=== PATIENT | female | born 1935 | race Caucasian/White ===

== ENCOUNTER 2018-03-23 11:39 | Emergency (ER) | payer MEDICARE, BC ==
[2018-03-23] MEDS ORDERED: Aspirin 81 MG Tab.Chew PO ONE (11:55)
--- NOTE | 2018-03-23 12:01 | EDM.PDOC ---
ED HPI GENERAL MEDICAL PROBLEM - General Chief Complaint: Chest Pain Stated Complaint: CHEST PAIN Time Seen by Provider: 03/23/18 11:45 Source of Information: Reports: Patient History Limitations: Reports: No Limitations - History of Present Illness INITIAL COMMENTS - FREE TEXT/NARRATIVE: 82 yo female from [facility] presents with her for chest pain with radiation down both arms. Sx's began yesterday while doing yard work and not better in the evening. She slept all night and then this morning the sx's returned. She had some nausea, but no SOB or diaphoresis. Does not take any medication for HTN and states the last time she checked it it was about 140. Has no hx of CAD or AODM. Onset Date: 03/22/18 Duration: Hour(s):, Intermittent (went away last night, returned this morning. Had a less severe case of this once at home, apparently didn't have it assessed. ) Location: Reports: Chest Quality: Reports: Pressure Severity: Moderate Improves with: Reports: Rest (Does not resolve with rest today. ) Worsens with: Reports: Movement Context: Reports: Other (Was doing yard work yesterday at onset, has some risk factors for CAD.) Associated Symptoms: Reports: Nausea/Vomiting (no vomiting, nausea now gone.). Denies: Cough, Diaphoresis, Fever/Chills, Shortness of Breath Treatments BONE GRINDER: Reports: Other (see below) (none) - Related Data Allergies Allergy/AdvReac Type Severity Reaction Status Date / Time No Known Allergies Allergy Verified 03/23/18 11:48 Home Meds: Home Meds Bifidobacterium Infantis [Align] 4 mg PO BEDTIME 03/23/18 [History] Fluticasone Propionate [Flovent HFA] 2 puff INH DAILY 03/23/18 [History] Simvastatin [Zocor] 10 mg PO BEDTIME 03/23/18 [History] ED ROS GENERAL - Review of Systems Review Of Systems: See Below Constitutional: Reports: No Symptoms HEENT: Reports: No Symptoms Respiratory: Reports: No Symptoms Cardiovascular: Reports: No Symptoms GI/Abdominal: Reports: Nausea. Denies: Black Stool, Constipation, Diarrhea, Distension, Flatus, Hematemesis, Hematochezia, Melena, Vomiting : Reports: No Symptoms Musculoskeletal: Reports: No Symptoms Skin: Reports: No Symptoms Neurological: Reports: No Symptoms Psychiatric: Reports: No Symptoms ED EXAM, GENERAL - Physical Exam Exam: See Below Exam Limited By: No Limitations General Appearance: Alert, WD/WN, No Apparent Distress, Obese Eye Exam: Bilateral Eye: Normal Inspection Ears: Normal External Exam, Normal Canal, Hearing Grossly Normal, Normal TMs Ear Exam: Bilateral Ear: Auricle Normal, Canal Normal Nose: Normal Inspection, Normal Mucosa, No Blood Throat/Mouth: Normal Inspection, Normal Lips, Normal Oropharynx, Normal Voice, No Airway Compromise Head: Atraumatic, Normocephalic Neck: Normal Inspection, Supple, Non-Tender Respiratory/Chest: No Respiratory Distress, Lungs Clear, Normal Breath Sounds, No Accessory Muscle Use Cardiovascular: Regular Rate, Rhythm, No Edema GI/Abdominal: Normal Bowel Sounds, Soft, Non-Tender, No Distention Extremities: Normal Inspection, Normal Range of Motion, Non-Tender, No Pedal Edema Neurological: Alert, Oriented, CN II-XII Intact, Normal Cognition, No Motor/ Sensory Deficits Psychiatric: Normal Affect, Normal Mood Skin Exam: Warm, Dry, Intact, Normal Color, No Rash Lymphatic: No Adenopathy EKG INTERPRETATION EKG Date: 03/23/18 Time: 11:45 Rhythm: NSR Rate (Beats/Min): 72 Ewing: Normal P-Wave: Present QRS: Normal ST-T: Normal QT: Normal Comparison: NA - No Prior EKG EKG Interpretation Comments: flipped T's in V1-V2, Q waves inferior leads Course - Vital Signs Text/Narrative:: NTG #1-pain down significantly to a 3/10 from 6/10. NTG #2-pain down to 2/10 NTG #3-pain now 0/10 EKG#2 done after pain resolution-T waves now flattened in V2 instead of inverted. Dr. Rose accepts in transfer to [facility] @ 1300h. Last Recorded V/S: Last Vital Signs Temp 37.0 C 03/23/18 11:58 Pulse 73 03/23/18 12:43 Resp 12 03/23/18 12:43 BP 141/71 H 03/23/18 12:43 Pulse Ox 95 03/23/18 12:43 - Orders/Labs/Meds Orders: Active Orders 24 hr Category Date Time Status Cardiac Monitoring [RC] .As Directed Care 03/23/18 11:42 Active EKG Documentation Completion [RC] ASDIRECTED Care 03/23/18 11:42 Active EKG Documentation Completion [RC] ASDIRECTED Care 03/23/18 12:34 Ordered Sodium Chloride 0.9% [Saline Flush] Med 03/23/18 12:02 Active 10 ml FLUSH ASDIRECTED PRN Saline Lock Insert [OM.PC] Routine Oth 03/23/18 12:02 Ordered EKG 12 Lead [EK] Routine Ther 03/23/18 11:42 Ordered EKG 12 Lead [EK] Routine Ther 03/23/18 12:34 Ordered Medication Orders Sodium Chloride (Saline Flush) 10 ml FLUSH ASDIRECTED PRN PRN Reason: Keep Vein Open Last Admin: 03/23/18 12:16 Dose: 10 ml Labs: Laboratory Tests 03/23/18 03/23/18 Range/Units 11:57 11:57 WBC 11.7 H (4.5-11.0) K/uL RBC 4.95 (3.30-5.50) M/uL Hgb 14.8 (12.0-15.0) g/dL Hct 43.2 (36.0-48.0) % MCV 87 (80-98) fL MCH 30 (27-31) pg MCHC 34 (32-36) % Plt Count 382 (150-400) K/uL Sodium 141 (140-148) mmol/L Potassium 3.7 (3.6-5.2) mmol/L Chloride 105 (100-108) mmol/L Carbon Dioxide 29 (21-32) mmol/L Anion Gap 7.5 (5.0-14.0) mmol/L BUN 17 (7-18) mg/dL Creatinine 1.1 H (0.6-1.0) mg/dL Est Cr Clr Drug Dosing 31.72 mL/min Estimated GFR (MDRD) 48 L (>60) Glucose 265 H (74-106) mg/dL Calcium 10.5 H (8.5-10.1) mg/dL Troponin I 0.644 H* (0.000-0.056) ng/mL Meds: Medications Generic Name Dose Route Start Last Admin Trade Name Freq PRN Reason Stop Dose Admin Sodium Chloride 10 ml 03/23/18 12:02 03/23/18 12:16 Saline Flush FLUSH 10 ml ASDIRECTED PRN Administration Keep Vein Open Discontinued Medications Generic Name Dose Route Start Last Admin Trade Name Armandoq PRN Reason Stop Dose Admin Aspirin 243 mg 03/23/18 11:55 03/23/18 12:02 Aspirin PO 03/23/18 11:56 243 mg ONETIME ONE Administration Clopidogrel Bisulfate 600 mg 03/23/18 12:19 03/23/18 12:22 Plavix PO 03/23/18 12:20 600 mg ONETIME ONE Administration Metoprolol Tartrate 50 mg 03/23/18 12:06 03/23/18 12:14 Lopressor PO 03/23/18 12:07 50 mg ONETIME ONE Administration Nitroglycerin 0.4 mg 03/23/18 11:55 03/23/18 12:17 Nitrostat SL 0.4 mg Q5M PRN Administration Chest Pain Departure - Departure Time of Disposition: 13:15 Disposition: DC/Tfer to Acute Hospital 02 Reason for Transfer *Q: Other Condition: Serious Clinical Impression: Acute coronary syndrome HTN (hypertension) Qualifiers: Hypertension type: unspecified Qualified Code(s): I10 - Essential (primary) hypertension Hyperglycemia due to type 2 diabetes mellitus Qualifiers: Diabetes mellitus care home insulin use: without director long term care use Qualified Code(s ): E11.65 - Type 2 diabetes mellitus with hyperglycemia Referrals: PCP,None [Primary Care Provider] - Forms: ED Department Discharge - My Orders Last 24 Hours: My Active Orders 03/23/18 11:42 Cardiac Monitoring [RC] .As Directed EKG Documentation Completion [RC] ASDIRECTED EKG 12 Lead [EK] Routine 03/23/18 12:02 Sodium Chloride 0.9% [Saline Flush] 10 ml FLUSH ASDIRECTED PRN Saline Lock Insert [OM.PC] Routine 03/23/18 12:34 EKG Documentation Completion [RC] ASDIRECTED EKG 12 Lead [EK] Routine - Assessment/Plan Last 24 Hours: My Active Orders 03/23/18 11:42 Cardiac Monitoring [RC] .As Directed EKG Documentation Completion [RC] ASDIRECTED EKG 12 Lead [EK] Routine 03/23/18 12:02 Sodium Chloride 0.9% [Saline Flush] 10 ml FLUSH ASDIRECTED PRN Saline Lock Insert [OM.PC] Routine 03/23/18 12:34 EKG Documentation Completion [RC] ASDIRECTED EKG 12 Lead [EK] Routine
[2018-03-23] MEDS ORDERED: Sodium Chloride 0.9% 10 ML Syringe FLUSH PRN (12:02)
[2018-03-23] MEDS: Nitroglycerin 0.4 MG Tab.SL SL PRN ×3 (12:02→12:17)
[2018-03-23] MEDS ORDERED: Metoprolol Tartrate 50 MG Tab PO ONE (12:06)
[2018-03-23] MEDS ORDERED: Clopidogrel 75 MG Tab PO ONE (12:19)
[2018-03-23] MEDS ORDERED: Heparin Sodium 5,000 Units/ML Vial IVPUSH ONE (13:02)
[2018-03-23] MEDS ORDERED: Nitroglycerin/D5W 25 MG/250 ML BOTTLE IV SCH (13:15)
[2018-03-23] MEDS ORDERED: Heparin Sodium/D5W 25,000 UNITS/500 ML BAG IV SCH (13:15)
--- NOTE | 2018-03-25 10:04 | CR ---
Chest 1V Frontal INDICATION: Chest pain/HTN FINDINGS: Negative AP portable chest x-ray.
== END 2018-03-23 13:57 ==
LOC: JP.ED 11:39
DX: I24.9 Acute ischemic heart disease, unspecified (principal); E11.65 Type 2 diabetes mellitus with hyperglycemia; I10 Essential (primary) hypertension
CPT/HCPCS: 36415; 71045; 80048; 84484; 85027; 93005; 96374; 96376; 99285; A9270; J1644; J7050

== ENCOUNTER 2018-05-06 23:18 | Emergency (ER) | payer MEDICARE, BC ==
--- NOTE | 2018-05-07 01:30 | EDM.PDOC ---
ED HPI GENERAL MEDICAL PROBLEM - General Chief Complaint: General Stated Complaint: BACK PAIN/DIZZY Time Seen by Provider: 05/07/18 01:05 Source of Information: Reports: Patient, Family (Spouse and daughter), Old Records, RN Notes Reviewed History Limitations: Reports: No Limitations - History of Present Illness INITIAL COMMENTS - FREE TEXT/NARRATIVE: Brought in by her spouse and daughter Chief complaint Decreased energy, arm pains, her in particular was concerned that she may be having another heart attack History of present illness 82-year-old female was in hospital the with chest pain, elevated troponin and subtle changes on EKG, transferred to [place] where she underwent a stent placement. After that she improved. However in the last couple of days her energy is decreased, her appetite also She's been feeling off balance having some troubles walking, holding onto the nash or other people. No nausea vomiting No diarrhea No lightheadedness, not faint when she stands up. No chest pain no palpitations Some discomfort in her arms or achiness which is what worried her Has to stop skilled nursing up her dad stairways to get her breath No cold symptoms She has a chronic cough however Histor diabetes and hypertensiony of back Pain Score (Numeric/FACES): 4 - Related Data Allergies Allergy/AdvReac Type Severity Reaction Status Date / Time No Known Allergies Allergy Verified 05/07/18 00:29 Home Meds: Home Meds Bifidobacterium Infantis [Align] 4 mg PO BEDTIME 03/23/18 [History] Fluticasone Propionate [Flovent HFA] 2 puff INH DAILY 03/23/18 [History] Simvastatin [Zocor] 20 mg PO BEDTIME 03/23/18 [History] Albuterol [Ventolin HFA] 2 puff INH Q4H PRN 05/07/18 [History] Clopidogrel Bisulfate [Clopidogrel] 1 tab PO DAILY 05/07/18 [History] Famotidine 1 tab PO BEDTIME 05/07/18 [History] Lisinopril 1 tab PO DAILY 05/07/18 [History] Metoprolol Tartrate 12.5 mg PO BID 05/07/18 [History] Nitroglycerin 1 tab SL Q5M PRN 05/07/18 [History] Past Medical History HEENT History: Reports: Cataract, Impaired Vision Cardiovascular History: Reports: Angina, High Cholesterol, CA, Stents Respiratory History: Reports: Other (See Below) Other Respiratory History: on inhalers daily Genitourinary History: Reports: Renal Calculus DIRECTOR OF MEDICAL STAFF SERVICES History: Reports: Musculoskeletal History: Reports: Arthritis Hematologic History: Reports: Anticoagulation Therapy Oncologic (Cancer) History: Reports: Lung - Past Surgical History Cardiovascular Surgical History: Reports: Coronary Artery Stent Respiratory Surgical History: Reports: Lung Resection GI Surgical History: Reports: Cholecystectomy, Colonoscopy, EGD Female Surgical History: Reports: Hysterectomy Endocrine Surgical History: Reports: Parathyroidectomy Musculoskeletal Surgical History: Reports: Hip Replacement, Knee Replacement Oncologic Surgical History: Reports: Biopsy of Breast Social & Family History - Tobacco Use Smoking Status *Q: Never Smoker - Caffeine Use Caffeine Use: Reports: None - Recreational Drug Use Recreational Drug Use: No ED ROS GENERAL - Review of Systems Review Of Systems: See Below Constitutional: Reports: Malaise, Weakness. Denies: Fever, Chills, Night Sweats , Diaphoresis, Decreased Appetite HEENT: Reports: No Symptoms Respiratory: Reports: Shortness of Breath, Cough (Chronic) Cardiovascular: Reports: Dyspnea on Exertion. Denies: Chest Pain, Lightheadedness, Palpitations GI/Abdominal: Reports: Decreased Appetite. Denies: Abdominal Pain, Diarrhea, Nausea, Vomiting Musculoskeletal: Reports: Joint Pain, Muscle Pain Skin: Reports: No Symptoms Neurological: Reports: No Symptoms Psychiatric: Reports: No Symptoms Immunologic: Reports: No Symptoms ED EXAM, GENERAL - Physical Exam Exam: See Below Exam Limited By: No Limitations General Appearance: Alert, Mild Distress, Other (Tired, listless, Vital signs within normal except pulse so little low at 58) Ears: Normal External Exam, Hearing Grossly Normal Nose: Normal Inspection, Normal Mucosa Throat/Mouth: Normal Inspection, Normal Oropharynx, Normal Voice Head: Atraumatic, Normocephalic Neck: Normal Inspection Respiratory/Chest: No Respiratory Distress, No Accessory Muscle Use Cardiovascular: Regular Rate, Rhythm, Bradycardia GI/Abdominal: Normal Bowel Sounds, Soft, Non-Tender Back Exam: Normal Inspection Extremities: Normal Inspection, Normal Capillary Refill Neurological: Alert, Oriented, No Motor/Sensory Deficits Psychiatric: Flat Affect Skin Exam: Warm, Dry, Intact, No Rash, Pallor Course - Vital Signs Last Recorded V/S: Last Vital Signs Temp 35.2 C 05/07/18 00:40 Pulse 60 05/07/18 02:01 Resp 17 05/07/18 02:01 BP 109/55 L 05/07/18 02:01 Pulse Ox 95 05/07/18 02:01 - Orders/Labs/Meds Orders: Active Orders 24 hr Category Date Time Status EKG Documentation Completion [RC] ASDIRECTED Care 05/07/18 01:22 Active Chest 1V Frontal [CR] Stat Exams 05/07/18 01:22 Taken EKG 12 Lead [EK] Routine Ther 05/07/18 01:21 Ordered Labs: Laboratory Tests 05/07/18 05/07/18 Range/Units 01:21 01:21 WBC 8.5 (4.5-11.0) K/uL RBC 4.12 (3.30-5.50) M/uL Hgb 12.4 D (12.0-15.0) g/dL Hct 37.3 (36.0-48.0) % MCV 91 (80-98) fL MCH 30 (27-31) pg MCHC 33 (32-36) % Plt Count 348 (150-400) K/uL Sodium 137 L (140-148) mmol/L Potassium 3.8 (3.6-5.2) mmol/L Chloride 105 (100-108) mmol/L Carbon Dioxide 27 (21-32) mmol/L Anion Gap 8.8 (5.0-14.0) mmol/L BUN 17 (7-18) mg/dL Creatinine 0.8 (0.6-1.0) mg/dL Est Cr Clr Drug Dosing 43.62 mL/min Estimated GFR (MDRD) > 60 (>60) Glucose 187 H (74-106) mg/dL Calcium 10.1 (8.5-10.1) mg/dL Troponin I < 0.017 (0.000-0.056) ng/mL - Re-Assessments/Exams Free Text/Narrative Re-Assessment/Exam: 05/07/18 01:31 82-year-old female, 2 weeks post stent for heart attack with elevated troponin, was doing well until last couple days has exhibited increased shortness of breath with exertion increased fatigue decreased activity and appetite. Tired on exam, no significantly abnormal vital signs Differential diagnosis includes viral infection, urinary tract infection, ischemia, congestive heart failure among others. 05/07/18 02:36 Chest x-ray no acute findings EKG nonspecific changes but no signs of ischemia Troponin normal No other significant abnormalities except for mild elevation sugar Impression fatigue No signs of heart or lung disease Return to emergency if chest pain short of breath Follow-up primary ca Departure - Departure Time of Disposition: 02:37 Disposition: Home, Self-Care 01 Condition: Good Clinical Impression: Malaise and fatigue, Short of breath on exertion - Discharge Information Instructions: Fatigue, Weakness, [id number] Referrals: Pushpa Macias BUSINESS COMPUTERS TEACHER [Primary Care Provider] - Forms: ED Department Discharge Additional Instructions: Testing tonightTesting tonight does not show any signs of heart or lung disease Nevertheless you do show increased fatigue especially with exertion Make an appointment to be seen by your doctor/clinic in the next week Return to emergency if you become febrile, developed a bad cough, chest pains, racing heart, or weakness to the point of unable to walk or fainting - My Orders Last 24 Hours: My Active Orders 05/07/18 01:21 EKG 12 Lead [EK] Routine 05/07/18 01:22 EKG Documentation Completion [RC] ASDIRECTED Chest 1V Frontal [CR] Stat - Assessment/Plan Last 24 Hours: My Active Orders 05/07/18 01:21 EKG 12 Lead [EK] Routine 05/07/18 01:22 EKG Documentation Completion [RC] ASDIRECTED Chest 1V Frontal [CR] Stat
--- NOTE | 2018-05-09 10:25 | CR ---
Chest 1V Frontal INDICATION: fatigue dyspnea on exertion COMPARISON: 03/23/2018 FINDINGS: AP portable chest. Heart size normal. Lungs are clear. No pleural effusion.
== END 2018-05-07 02:43 | disposition home or self-care (01) ==
LOC: JP.ED 23:18
DX: R53.83 Other fatigue (principal); R06.02 Shortness of breath; E11.9 Type 2 diabetes mellitus without complications; I10 Essential (primary) hypertension; E78.00 Pure hypercholesterolemia, unspecified; Z79.01 Long term (current) use of anticoagulants; Z79.899 Other long term (current) drug therapy
CPT/HCPCS: 36415; 71045; 71045-26; 80048; 84484; 85027; 93005; 99284-25

== ENCOUNTER 2020-08-01 10:33 | Emergency (ER) | payer MEDICARE, BC ==
[2020-08-01] MEDS ORDERED: Ketorolac 60 MG/2 ML SDV IM ONE (11:09)
--- NOTE | 2020-08-01 11:09 | EDM.PDOC ---
ED HPI GENERAL MEDICAL PROBLEM - General Chief Complaint: Upper Extremity Injury/Pain Stated Complaint: POSSIBLE BROKEN ARM OR WRIST LEFTSIDE Time Seen by Provider: 08/01/20 11:05 Source of Information: Reports: Patient, Family History Limitations: Reports: No Limitations - History of Present Illness INITIAL COMMENTS - FREE TEXT/NARRATIVE: 84-year-old female fell this morning injuring her left wrist. No other injury. Onset: Sudden Duration: Hour(s): (Within the last 2 hours) Location: Reports: Upper Extremity, Left Associated Symptoms: Reports: No Other Symptoms - Related Data Allergies Allergy/AdvReac Type Severity Reaction Status Date / Time No Known Allergies Allergy Verified 08/01/20 10:52 Home Meds: Home Meds Bifidobacterium Infantis [Align] 4 mg PO BEDTIME 03/23/18 [History] Fluticasone Propionate [Flovent HFA] 2 puff INH DAILY 03/23/18 [History] Simvastatin [Zocor] 20 mg PO BEDTIME 03/23/18 [History] Albuterol [Ventolin HFA] 2 puff INH Q4H PRN 05/07/18 [History] Metoprolol Tartrate 12.5 mg PO BID 05/07/18 [History] Nitroglycerin 1 tab SL Q5M PRN 05/07/18 [History] Past Medical History HEENT History: Reports: Cataract, Impaired Vision Cardiovascular History: Reports: Angina, High Cholesterol, [place], Stents Respiratory History: Reports: Other (See Below) Other Respiratory History: on inhalers daily Genitourinary History: Reports: Renal Calculus FORM STRIPPER History: Reports: Musculoskeletal History: Reports: Arthritis Hematologic History: Reports: Anticoagulation Therapy Oncologic (Cancer) History: Reports: Lung - Past Surgical History Cardiovascular Surgical History: Reports: Coronary Artery Stent Respiratory Surgical History: Reports: Lung Resection GI Surgical History: Reports: Cholecystectomy, Colonoscopy, EGD Female Surgical History: Reports: Hysterectomy Endocrine Surgical History: Reports: Parathyroidectomy Musculoskeletal Surgical History: Reports: Hip Replacement, Knee Replacement Oncologic Surgical History: Reports: Biopsy of Breast Social & Family History - Tobacco Use Smoking Status *Q: Never Smoker - Caffeine Use Caffeine Use: Reports: None Review of Systems - Review of Systems Review Of Systems: See Below Constitutional: Denies: Fever Respiratory: Reports: No Symptoms Cardiovascular: Reports: No Symptoms Skin: Denies: Bruising (No bruising developing around the wrist) Neurological: Reports: Paresthesia (Mild numbness of the hand) ED EXAM, GENERAL - Physical Exam Exam: See Below Exam Limited By: No Limitations General Appearance: Alert, Mild Distress (Looks fairly uncomfortable with left hand pain) Head: Atraumatic Respiratory/Chest: No Respiratory Distress Cardiovascular: Regular Rate, Rhythm Extremities: Other (Exam is otherwise limited to the left arm. Clavicle shoulder and elbow are nontender. No significant form any of the wrist, however she is exquisitely tender to palpation of the distal radius and ulna.) Neurological: Alert, Oriented Psychiatric: Normal Affect, Normal Mood Course - Vital Signs Last Recorded V/S: Last Vital Signs Temp 97.0 F 08/01/20 10:58 Pulse 64 08/01/20 10:58 Resp 14 08/01/20 10:58 BP 192/94 H 08/01/20 10:58 Pulse Ox 96 08/01/20 10:58 - Orders/Labs/Meds Orders: Active Orders 24 hr Category Date Time Status Wrist Comp Min 3V Lt [CR] Stat Exams 08/01/20 11:09 Taken DME for Discharge [COMM] Stat Oth 08/01/20 11:43 Ordered Meds: Medications Discontinued Medications Generic Name Dose Route Start Last Admin Trade Name Freq PRN Reason Stop Dose Admin Ketorolac Tromethamine 60 mg 08/01/20 11:09 08/01/20 11:17 Toradol IM 08/01/20 11:10 60 mg ONETIME ONE Administration - Re-Assessments/Exams Free Text/Narrative Re-Assessment/Exam: 08/01/20 11:38 An x-ray is obtained that shows a somewhat comminuted mildly displaced distal radius fracture. An Ortho-Glass sugar tong splint was placed on the arm, she was placed in a sling, and will recheck with orthopedics tomorrow when she goes home. 10 hydrocodone were given for extra pain control. Departure - Departure Time of Disposition: 11:57 Disposition: Home, Self-Care 01 Clinical Impression: Distal radius fracture, left Qualifiers: Encounter type: initial encounter Fracture type: closed Fracture morphology: other intra-articular Qualified Code(s): S52.572A - Other intraarticular fracture of lower end of left radius, initial encounter for closed fracture - Discharge Information Instructions: Wrist Fracture Treated With Immobilization, [id number] Referrals: PCP,None [Primary Care Provider] - Forms: ED Department Discharge, ED Return to Work/School Form Care Plan Goals: Keep splint on and use sling for comfort, pain control as needed. Recheck with orthopedics in the next 48 hours. Sepsis Event Note (ED) - Evaluation Sepsis Screening Result: No Definite Risk - Focused Exam Vital Signs: Vital Signs Temp Pulse Resp BP Pulse Ox 08/01/20 10:58 97.0 F 64 14 192/94 H 96 - My Orders Last 24 Hours: My Active Orders 08/01/20 11:09 Wrist Comp Min 3V Lt [CR] Stat 08/01/20 11:43 DME for Discharge [COMM] Stat - Assessment/Plan Last 24 Hours: My Active Orders 08/01/20 11:09 Wrist Comp Min 3V Lt [CR] Stat 08/01/20 11:43 DME for Discharge [COMM] Stat
--- NOTE | 2020-08-02 09:42 | CR ---
Wrist Comp Min 3V Lt CLINICAL HISTORY: Injury FINDINGS: There is an impacted fracture of the distal radius with articular surface involvement. There is a fracture of the ulnar styloid. There are osteoarthritic changes and calcification in the articular cartilage in ligaments. There is a minimal cortical irregularity along the lateral aspect of the scaphoid. This may be due to degenerative spurring. Nondisplaced fractures felt less likely but not excluded Impression: Impaction fracture distal radius and fracture ulnar styloid Mild irregularity of the scaphoid. This can be evaluated on follow-up Osteoarthritis
== END 2020-08-01 11:57 | disposition home or self-care (01) ==
LOC: JP.ED 10:33
DX: S52.502A Unspecified fracture of the lower end of left radius, initial encounter for closed fracture (principal); E78.00 Pure hypercholesterolemia, unspecified; I25.2 Old myocardial infarction; Z79.899 Other long term (current) drug therapy; W01.0XXA Fall on same level from slipping, tripping and stumbling without subsequent striking against object, initial encounter; Y92.009 Unspecified place in unspecified non-institutional (private) residence as the place of occurrence of the external cause
CPT/HCPCS: 29125; 73110; 96372; 99283; J1885